=== PATIENT | female | born 1970 | race Caucasian/White ===

== ENCOUNTER 2017-05-26 10:53 | Emergency (ER) | payer OTHER ==
[~2017-05-26] VITALS: Ht 160 cm; Wt 56.0 kg
[~2017-05-26 10:53] MED LIST: CEPH-460 PO; PROZ20CA11 PO
[2017-05-26 10:58] VITALS: BP 117/83; PULSE 107; RESP 16; TEMP 97.9; O2SAT 94
[2017-05-26] MEDS ORDERED: ADDE20 PO (11:11)
[2017-05-26] MEDS ORDERED: FLUO60TA PO (11:11)
[2017-05-26] MEDS ORDERED: TRAM50TA PO (11:40)
[2017-05-26] MEDS ORDERED: CLIN1CAP6 PO (11:40)
[2017-05-26] MEDS ORDERED: CLINDAMYCIN 150 MG CAP PO ONE (11:45)
--- NOTE | 2017-05-26 11:46 | PD ---
HPI Chief Complaint: Skin Problem Time Seen by Provider: 11:20 Travel History International Travel<30 days: No Contact w/Intl Traveler<30days: No Traveled to known affect area: No History of Present Illness HPI 47-year-old female presents to the emergency room for evaluation of infected wound to his face that started 1 week ago today. Patient states she got a Botox injection 8 days ago and the following day she developed blisters are on the area. States she accidentally popped one of the blisters and it rapidly increased in size. She called her surgeon who prescribed gentamicin ointment and told her to wash her face daily with chlorhexidine. Patient states she has been doing this without improvement in symptoms. There been times where she has touched the wound on her forehead and it drains thick, yellow discharge and/ or blood. She has been keeping it covered but states the redness has spread around the wound. She developed swelling to the eyes yesterday. Patient reports extreme headache that is worse when she leans forward. Denies fever, chills, nausea, and vomiting. PFSH Past Medical History Autoimmune Disease: No Anxiety: Yes Depression: Yes Diabetes: No Diminished Hearing: No Psychiatric: Yes (MOOD SWINGS) Thyroid Disease: No Social History Alcohol Use: Yes (WINE ONCE PER MONTH) Tobacco Use: Yes (ONLY IF DRINKING, WILL HAVE ONE CIGARETTE) Substance Use: No Allergies-Medications (Allergen,Severity, Reaction): Coded Allergies: Hydrocodone (Verified Allergy, Intermediate, Hives, 05/26/17) denies this allergy Reported Meds & Prescriptions Reported Meds & Active Scripts Active Tramadol (Tramadol HCl) 50 Mg Tab 50 Mg PO Q8H PRN Clindamycin (Clindamycin HCl) 300 Mg Cap 300 Mg PO Q6H 10 Days Reported Adderall (Amphetamine-Dextroamphetamine) 20 Mg Tab 20 Mg PO DAILY Avoid late evening doses. Space doses at least 4 to 6 hours if more than once/day dosing. Fluoxetine (Fluoxetine HCl) 60 Mg Tab 60 Mg PO DAILY Review of Systems Except as stated in HPI: all other systems reviewed are Neg Physical Exam Narrative GENERAL: Well-nourished, well-developed female in no acute distress. Afebrile. Ambulatory. SKIN: Focused skin assessment warm/dry. There is a 4 cm scabbed wound on the forehead with 2 cm of surrounding erythema. It is draining purulent discharge. No lymphangitis. There is mild edema to bilateral eyes. HEAD: Normocephalic. EYES: No scleral icterus. No injection or drainage. NECK: Supple, trachea midline. No JVD or lymphadenopathy. CARDIOVASCULAR: Regular rate and rhythm without murmurs, gallops, or rubs. RESPIRATORY: Breath sounds equal bilaterally. No accessory muscle use. PSYCHIATRIC: No delusional thought processes. No hallucinations. Data Data Last Documented VS Vital Signs Date Time Temp Pulse Resp B/P Pulse Ox O2 Delivery O2 Flow Rate FiO2 05/26/17 10:58 97.9 107 16 117/83 94 Orders Wound Culture And Gram Stain (05/26/17 11:38) Clindamycin (Cleocin) (05/26/17 11:45) MDM Medical Decision Making Medical Screen Exam Complete: Yes Emergency Medical Condition: Yes Medical Record Reviewed: Yes Differential Diagnosis Cellulitis, infected wound, folliculitis, preseptal cellulitis Narrative Course 47-year-old female presents to the emergency room for evaluation of wound infection. Patient had Botox injection 8 days ago and developed blisters the following day. States they began draining purulent discharge with increasing redness and pain throughout the week. She has been applying topical gentamicin ointment as prescribed by her physician without any relief in symptoms. Physical exam reveals a 4 cm scabbed wound with spontaneous purulent drainage in the center of the forehead. There is surrounding erythema approximately 2 cm off the wound and bilateral lower eyelid edema. Vital signs stable. Wound culture was taken and patient was given loading dose of 600 mg clindamycin. Discharged with prescription for clindamycin and tramadol and told to follow-up with the primary care physician or return for worsening symptoms. Patient was informed she'll not likely see results for the next 2 days. She understands and agrees to plan. Diagnosis Primary Impression: Preseptal cellulitis Referrals: Primary Care Physician Patient Instructions: General Instructions, Periorbital Cellulitis in Adults ( ED) Additional Instructions: Rest and drink plenty of fluids. Take clindamycin as directed, until gone. Take tramadol as directed, as needed for pain. Do not drink alcohol or drive while taking this medication. Follow up with a primary care physician. Return to emergency room for worsening symptoms, as discussed. Med/Other Pt SpecificInfo: Prescription(s) given Scripts Tramadol 50 Mg Tab50 Mg PO Q8H PRN (PAIN) #8 TAB Ref 0 Prov:Mague Weinstein MD 05/26/17 Clindamycin 300 Mg [id number] Mg PO Q6H 10 Days Ref 0 Prov:Mague Weinstein MD 05/26/17 Disposition: 01 DISCHARGE HOME Condition: Stable Susan Hayes May 26, 2017 11:45
== END 2017-05-26 11:59 | disposition home or self-care (01) ==
LOC: PHEFT 10:53
DX: L03.213 Periorbital cellulitis (principal)
CPT/HCPCS: 87070; 87205; 99284

== ENCOUNTER 2017-06-05 13:33 | Emergency (ER) | payer OTHER ==
[~2017-06-05] VITALS: Ht 160 cm; Wt 55.0 kg
[~2017-06-05 13:33] MED LIST changes: +ADDE20 PO; -CEPH-460 PO; +CLIN1CAP6 PO; +FLUO60TA PO; -PROZ20CA11 PO; +TRAM50TA PO
[2017-06-05 13:48] VITALS: BP 120/74; PULSE 92; RESP 16; TEMP 98.4; O2SAT 97
--- NOTE | 2017-06-05 14:44 | PD ---
HPI Chief Complaint: Skin Problem Time Seen by Provider: 14:30 Travel History International Travel<30 days: No Contact w/Intl Traveler<30days: No Traveled to known affect area: No History of Present Illness HPI 47-year-old female presents for recheck. The patient reports that 2 weeks ago she received Botox injection in her forehead. A few days later she developed some redness and some blister type lesions, yellow drainage from the area where the Botox was administered. She was seen here on May 26 and felt to have a forehead cellulitis. A wound culture was performed and she was placed on clindamycin. She returns today for recheck. She reports significant improvement in her symptoms. The redness is significantly improved. She continues to have some occasional drainage as well as some redness/coalescing vesicles centrally. 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 She has no other complaints at this time. She has not yet followed up with the physician who performed the injections although she is planning on doing so soon. [facility] Past Medical History Autoimmune Disease: No Anxiety: Yes Depression: Yes Diabetes: No Diminished Hearing: No Psychiatric: Yes (MOOD SWINGS) Immunizations Current: No Thyroid Disease: No Tetanus Vaccination: < 5 Years Influenza Vaccination: No ?: Not Past Surgical History Surgical History: No Previous Surgery Social History Alcohol Use: Yes (WINE ONCE PER MONTH) Tobacco Use: Yes (ONLY IF DRINKING, WILL HAVE ONE CIGARETTE) Substance Use: No Allergies-Medications (Allergen,Severity, Reaction): Coded Allergies: Hydrocodone (Verified Allergy, Intermediate, Hives, 06/05/17) denies this allergy Reported Meds & Prescriptions Reported Meds & Active Scripts Active Clindamycin (Clindamycin HCl) 300 Mg Cap 300 Mg PO Q6H 10 Days Reported Adderall (Amphetamine-Dextroamphetamine) 20 Mg Tab 20 Mg PO DAILY Avoid late evening doses. Space doses at least 4 to 6 hours if more than once/day dosing. Fluoxetine (Fluoxetine HCl) 60 Mg Tab 60 Mg PO DAILY Review of Systems Except as stated in HPI: all other systems reviewed are Neg Physical Exam Narrative GENERAL: Well-developed well-nourished female in no acute distress SKIN: Warm and dry. There is approximately 2-3 cm area of redness on the forehead centrally. There is centrally some vesicle coelescing lesions. This is in the center of the forehead and not unilateral. There is no induration or fluctuance. HEAD: Atraumatic. Normocephalic. EYES: Pupils equal and round. No scleral icterus. No injection or drainage. ENT: No nasal bleeding or discharge. Mucous membranes pink and moist. NECK: Trachea midline. No JVD. Data Data Last Documented VS Vital Signs Date Time Temp Pulse Resp B/P Pulse Ox O2 Delivery O2 Flow Rate FiO2 06/05/17 13:48 98.4 92 16 120/74 97 MDM Medical Decision Making Medical Screen Exam Complete: Yes Emergency Medical Condition: Yes Medical Record Reviewed: Yes Differential Diagnosis Adverse reactions of Botox, superimposed cellulitic infection, herpes simplex viral infection, herpes zoster Narrative Course Her history and examination are most consistent with adverse reactions to Botox injection. Her symptoms have improved with clindamycin. The wound culture was negative and although she has some redness of the forehead it is not particularly cellulitic. She does have some central vesicle formation and therefore a or B simplex viral culture will be performed. I don't suspect shingles as it is not unilateral. The patient is encouraged to follow-up with the physician who performed the Botox injection. Diagnosis Primary Impression: S/P Botox injection Additional Impression: Encounter for wound re-check Additional Instructions: Follow-up with your physician. Continue taking clindamycin. Return for any emergent medical conditions. Med/Other Pt SpecificInfo: No Change to Meds Disposition: 01 DISCHARGE HOME Condition: Stable Joey Cruz Jun 05, 2017 14:44
[2017-06-05] MEDS ORDERED: TRAM50TA PO (14:55)
== END 2017-06-05 15:03 | disposition home or self-care (01) ==
LOC: PHED 13:33
DX: L03.211 Cellulitis of face (principal); Z98.890 Other specified postprocedural states
CPT/HCPCS: 87255; 99283

== ENCOUNTER 2017-08-02 06:09 | Emergency (ER) | payer OTHER ==
[~2017-08-02] VITALS: Ht 160 cm; Wt 54.9 kg
[2017-08-02 06:18] VITALS: BP 129/77; PULSE 98; RESP 16; TEMP 98.1; O2SAT 99
--- NOTE | 2017-08-02 06:57 | PD ---
HPI Chief Complaint: Fall Time Seen by Provider: 06:21 Travel History International Travel<30 days: No Contact w/Intl Traveler<30days: No Traveled to known affect area: No History of Present Illness HPI The patient is a 47-year-old female that states she fell at 10:30 yesterday when she stepped into a hole at her apartment. She complains of right knee pain , neck pain, head pain and left lumbosacral pain. She states the pain is "severe". She also has a tiny laceration where her belly button ornament got pulled out and she wants this sutured. Her tetanus shot was one year ago. She does have a documented remote history of cocaine and alcohol abuse. PFSH Past Medical History Autoimmune Disease: No Anxiety: Yes Depression: Yes Diabetes: No Diminished Hearing: No Psychiatric: Yes (MOOD SWINGS) Immunizations Current: No Thyroid Disease: No Tetanus Vaccination: < 5 Years Influenza Vaccination: No ?: Not LMP: 07/02/17 Social History Alcohol Use: Yes (WINE ONCE PER MONTH) Tobacco Use: Yes (ONLY IF DRINKING, WILL HAVE ONE CIGARETTE) Substance Use: No Allergies-Medications (Allergen,Severity, Reaction): Coded Allergies: hydrocodone (Unverified Allergy, Intermediate, Hives, 08/02/17) denies this allergy Reported Meds & Prescriptions Reported Meds & Active Scripts Active Reported Fluoxetine (Fluoxetine HCl) 60 Mg Tab 60 Mg PO DAILY Review of Systems Except as stated in HPI: all other systems reviewed are Neg Physical Exam Narrative GENERAL: The patient is alert, oriented 3 in slight apparent distress. Her vital signs are normal. SKIN: Focused skin assessment warm/dry. There is a 4 mm laceration through scar tissue of the umbilicus which the patient wants sutured. HEAD: There is a tiny bruise without any bony deformity lateral to the left eyebrow. Normocephalic. EYES: Pupils equal and round. No scleral icterus. No injection or drainage. ENT: No nasal bleeding or discharge. Mucous membranes pink and moist. NECK: Trachea midline. No JVD. The C-spine shows no bruising but the patient states she has tenderness over the C-spine following the fall. She does want a CT in this area. CARDIOVASCULAR: Regular rate and rhythm. No murmur appreciated. RESPIRATORY: No accessory muscle use. Clear to auscultation. Breath sounds equal bilaterally. GASTROINTESTINAL: Abdomen soft, non-tender, nondistended. Hepatic and splenic margins not palpable. MUSCULOSKELETAL: No obvious deformities. No clubbing. No cyanosis. No edema. The right knee shows collaterals, drawer, Anthony all intact with no apparent bruising and no deformity but the patient states she has severe pain there. There is no bruising or deformity of the lumbosacral spine but the patient states he has "severe" tenderness to the left of the lumbosacral spine around S1 /S2. Straight leg raising is normal, deep tendon reflexes are +2 bilaterally both patella Achilles and pinprick is normal. NEUROLOGICAL: Awake and alert. No obvious cranial nerve deficits. Motor grossly within normal limits. Normal speech. PSYCHIATRIC: Appropriate mood and affect; insight and judgment normal. Data Data Last Documented VS Vital Signs Date Time Temp Pulse Resp B/P (MAP) Pulse Ox O2 Delivery O2 Flow Rate FiO2 08/02/17 06:34 99 Room Air 08/02/17 06:18 98.1 98 16 129/77 (94) Orders Orders Ct Brain W/O Iv Contrast(Rout) (08/02/17 06:46) Ct Cerv Spine W/O Contrast (08/02/17 06:46) Ct Lumb Spine W/O Contrast (08/02/17 06:46) Knee, Complete (4vws) (08/02/17 06:46) [facility] Medical Decision Making Medical Screen Exam Complete: Yes Emergency Medical Condition: Yes Medical Record Reviewed: Yes Differential Diagnosis Multiple contusions, fracture skull, intracranial bleed, C-spine fracture, cervical strain, lumbar strain, lumbar fracture, knee fracture, knee contusion Narrative Course It is now 0700 and the patient is transferred to Dr. Miranda. Clinically, the patient has very few findings and requested x-rays/CTs with very low probability of positive findings. Juan Carlos Lopez MD Aug 02, 2017 06:57
--- NOTE | 2017-08-02 07:28 | RADRPT ---
EXAM DATE/TIME: 08/02/2017 07:03 [facility] COMPARISON: No previous studies available for comparison. INDICATIONS : Right knee pain post fall yesterday. MEDICAL HISTORY : None. SURGICAL HISTORY : None. ENCOUNTER: Initial ACUITY: 2 days PAIN SCORE: 8/10 LOCATION: Right knee FINDINGS: Four view examination of the right knee demonstrates no evidence of fracture or dislocation. Bony mi neralization is normal. The articular surfaces are intact. The suprapatellar soft tissues have a no rmal configuration. CONCLUSION: Unremarkable examination of the right knee. Julio C Leal MD on August 02, 2017 at 7:26 Board Certified Radiologist. This report was verified electronically.
--- NOTE | 2017-08-02 07:28 | RADRPT ---
EXAM DATE/TIME: 08/02/2017 07:12 [facility] COMPARISON: CT BRAIN W/O CONTRAST, August 16, 2016, 23:32. INDICATIONS : Trauma, fall. Cephalgia. RADIATION DOSE: 58.44 CTDIvol (mGy) MEDICAL HISTORY : None SURGICAL HISTORY : None. ENCOUNTER: Initial ACUITY: 1 day PAIN SCALE: 7/10 LOCATION: cranial TECHNIQUE: Multiple contiguous axial images were obtained of the head. Using automated exposure control and adj ustment of the mA and/or kV according to patient size, radiation dose was kept as low as reasonably a chievable to obtain optimal diagnostic quality images. DICOM format image data is available electro nically for review and comparison. FINDINGS: CEREBRUM: The ventricles are normal for age. No evidence of midline shift, mass lesion, hemorrhage or acute in farction. No extra-axial fluid collections are seen. POSTERIOR FOSSA: The cerebellum and brainstem are intact. The 4th ventricle is midline. The cerebellopontine angle i s unremarkable. EXTRACRANIAL: The visualized portion of the orbits is intact. SKULL: The calvaria is intact. No evidence of skull fracture. CONCLUSION: No acute intracranial injury Julio C Leal MD on August 02, 2017 at 7:23 Board Certified Radiologist. This report was verified electronically.
--- NOTE | 2017-08-02 07:43 | RADRPT ---
EXAM DATE/TIME: 08/02/2017 07:12 [facility] COMPARISON: CT CERVICAL SPINE W/O CONTRAST, August 16, 2016, 23:32. INDICATIONS : Trauma, fall. RADIATION DOSE: 25.01 CTDIvol (mGy) MEDICAL HISTORY : None SURGICAL HISTORY : None. ENCOUNTER: Initial ACUITY: 1 day PAIN SCALE: 7/10 LOCATION: neck TECHNIQUE: Volumetric scanning of the cervical spine was performed. Multiplanar reconstructions in the sagittal, coronal and oblique axial planes were performed. Using automated exposure control and adjustment o f the mA and/or kV according to patient size, radiation dose was kept as low as reasonably achievable to obtain optimal diagnostic quality images. DICOM format image data is available electronically f or review and comparison. FINDINGS: Alignment is normal. No prevertebral soft tissue swelling or compression deformity. Mild disc space n arrowing and multilevel osteophytosis again seen greatest at C4-5 and C6-7. C1-C2 relationship is nor mal, and the odontoid process is intact. Mild multilevel facet hypertrophic changes. Cervicothoracic junction is approximated. Uncovertebral hypertrophy at C4-5 or C6-7 noted. Scattered subchondral cyst ic changes again seen. There are no signs of fracture or listhesis. CONCLUSION: 1. Degenerative changes are noted without evidence for acute fracture or listhesis. Fernando Orta MD on August 02, 2017 at 7:40 Board Certified Radiologist. This report was verified electronically.
--- NOTE | 2017-08-02 07:59 | RADRPT ---
EXAM DATE/TIME: 08/02/2017 07:16 [facility] COMPARISON: CT LUMBAR SPINE W/O CONTRAST, August 16, 2016, 23:36. INDICATIONS : Trauma, fall. Left low back pain. RADIATION DOSE: 13.24 CTDIvol (mGy) MEDICAL HISTORY : None SURGICAL HISTORY : None. ENCOUNTER: Initial ACUITY: 1 day PAIN SCALE: 7/10 LOCATION: Left lumbar. TECHNIQUE: Volumetric scanning of the lumbar spine was performed. Multiplanar reconstructions in the sagittal, coronal and oblique axial planes were performed. Using automated exposure control and adjustment of the mA and/or kV according to patient size, radiation dose was kept as low as reasonably achievable t o obtain optimal diagnostic quality images. DICOM format image data is available electronically for review and comparison. FINDINGS: VERTEBRAE: Normal vertebral body height. Stable small node superior endplate of L2 with mild multilevel osteophy te formation and facet hypertrophy. ALIGNMENT: No evidence of subluxation. T12-L1: The thecal sac has a normal diameter. No evidence of disc bulge or protrusion. The neural foramina are patent bilaterally. L1-L2: The thecal sac has a normal diameter. No evidence of disc bulge or protrusion. The neural foramina are patent bilaterally. L2-L3: The thecal sac has a normal diameter. No evidence of disc bulge or protrusion. The neural foramina are patent bilaterally. L3-L4: The thecal sac has a normal diameter. No evidence of disc bulge or protrusion. The neural foramina are patent bilaterally. L4-L5: Mild diffuse disc bulge and facet and ligamentum flavum hypertrophy with mild canal narrowing. L5-S1: The thecal sac has a normal diameter. No evidence of disc bulge or protrusion. The neural foramina are patent bilaterally. CONCLUSION: 1. Stable mild degenerative changes without evidence for acute fracture or listhesis. Fernando Orta MD on August 02, 2017 at 7:56 Board Certified Radiologist. This report was verified electronically.
[2017-08-02] MEDS ORDERED: ACETAMINOPHEN 500 MG CPLT PO ONE (08:00)
[2017-08-02] MEDS ORDERED: TRAM50TA PO (08:16)
--- NOTE | 2017-08-02 08:20 | PD ---
Data Data Last Documented VS Vital Signs Date Time Temp Pulse Resp B/P (MAP) Pulse Ox O2 Delivery O2 Flow Rate FiO2 08/02/17 06:34 99 Room Air 08/02/17 06:18 98.1 98 16 129/77 (94) Orders Orders Ct Brain W/O Iv Contrast(Rout) (08/02/17 06:46) Ct Cerv Spine W/O Contrast (08/02/17 06:46) Ct Lumb Spine W/O Contrast (08/02/17 06:46) Knee, Complete (4vws) (08/02/17 06:46) Acetaminophen (Tylenol) (08/02/17 08:00) MDM Supervised Visit with NGUYỄN: No Narrative Course Case is checked out to me by Dr. Lopez at 7 AM. Patient had a fall and I reviewed all the imaging studies Her knee x-rays are normal Brain CT negative Cervical spine and lumbar spine show some degenerative change without traumatic injury Patient has a 1 cm laceration just above the umbilicus where a piece of jewelry was pulled out. She insists upon one stitch being placed. LACERATION LOCATION: Umbilicus LENGTH: 1 cm NUMBER OF STITCHES/JEAN: 1 stitch REPAIR: The area of the laceration was prepped. No anesthesia needed for one suture. The wound was explored without evidence of foreign body, tendon injury or neurovascular injury. The wound was closed using 5-0 Ethilon in a single layer repair. A sterile dressing was applied. The patient was advised to keep the dressing clean and dry. Patient tolerated the procedure well. A few tramadol written for pain relief The patient was advised to follow up with their physician and return if they worsen. Diagnosis Primary Impression: Fall Qualified Codes: W19.XXXA - Unspecified fall, initial encounter Additional Impressions: Head injury due to trauma Qualified Codes: S09.90XA - Unspecified injury of head, initial encounter Low back strain Qualified Codes: S39.012A - Strain of muscle, fascia and tendon of lower back , initial encounter Laceration of abdominal wall Qualified Codes: S31.119A - Laceration without foreign body of abdominal wall , unspecified quadrant without penetration into peritoneal cavity, initial encounter Additional Instruction: The patient was advised to follow up with their physician and return if they worsen. The patient was warned about potential sedation for the medications they will receive on prescription. Med/Other Pt SpecificInfo: Prescription(s) given Scripts Tramadol (Tramadol) 50 Mg Tab 50 MG PO Q6H Y for PAIN, #10 TAB 0 Refills Prov: Breezy Miranda MD 08/02/17 Disposition: 01 DISCHARGE HOME Condition: Stable Breezy Miranda MD Aug 02, 2017 08:19
== END 2017-08-02 08:34 | disposition home or self-care (01) ==
LOC: PHED 06:09
DX: S09.90XA Unspecified injury of head, initial encounter (principal); S39.012A Strain of muscle, fascia and tendon of lower back, initial encounter; S31.115A Laceration without foreign body of abdominal wall, periumbilic region without penetration into peritoneal cavity, initial encounter; W17.2XXA Fall into hole, initial encounter; Y92.039 Unspecified place in apartment as the place of occurrence of the external cause
CPT/HCPCS: 12001; 70450; 72125; 72131; 73564

== ENCOUNTER 2018-02-08 07:26 | Emergency (ER) | payer OTHER ==
[~2018-02-08] VITALS: Ht 160 cm; Wt 56.8 kg
[~2018-02-08 07:26] MED LIST changes: -ADDE20 PO; -CLIN1CAP6 PO
[2018-02-08 07:45] VITALS: BP 132/82; PULSE 98; RESP 18; TEMP 97.1; O2SAT 100
--- NOTE | 2018-02-08 07:48 | PD ---
HPI Chief Complaint: Skin Problem Time Seen by Provider: 07:42 Travel History International Travel<30 days: No Contact w/Intl Traveler<30days: No Traveled to known affect area: No History of Present Illness HPI This 48-year-old female is complaining of a very itchy rash over face and upper chest. He says that a couple of days ago she had severe itching in the back of her neck. She was scratching a lot. She looked in her hair and saw bugs. She used a course of red and then is also wrapped her head and all of oil and then an coconut oil. She did notice a bug in her eyebrow. She developed a rash on her face this morning which is also quite itchy. She feels like she has had a fever the last couple of days. She does not have a cough. There has not been any dysuria. She is not on any medication. She has used Retin-A in the past for asthma but has not been using it recently she has noted some sores on her tongue PFSH Past Medical History Autoimmune Disease: No Anxiety: Yes Depression: Yes Diabetes: No Diminished Hearing: No Psychiatric: Yes (MOOD SWINGS) Immunizations Current: No Thyroid Disease: No Social History Alcohol Use: Yes (WINE ONCE PER MONTH) Tobacco Use: Yes (ONLY IF DRINKING, WILL HAVE ONE CIGARETTE) Substance Use: No Allergies-Medications (Allergen,Severity, Reaction): Coded Allergies: hydrocodone (Verified Allergy, Unknown, Hives, 02/08/18) Patient denies Reported Meds & Prescriptions Reported Meds & Active Scripts Active No Active Prescriptions or Reported Medications Review of Systems General / Constitutional: Positive: Fever, No: Chills Eyes: No: Diploplia, Blurred Vision HENT: No: Headaches Cardiovascular: No: Chest Pain or Discomfort, Palpitations Respiratory: No: Cough, Shortness of Breath Gastrointestinal: No: Nausea, Vomiting Genitourinary: No: Urgency Musculoskeletal: No: Myalgias Skin: Positive Rash, Positive Itching Endocrine: No: Heat Intolerance Hematologic/Lymphatic: No: Easy Bruising Physical Exam Narrative GENERAL: Well-developed female SKIN: Focused skin assessment warm/dry. There are some erythematous plaques on the face with some exudate and some mild swelling. There are similar lesions on the chest. I have examined the scalp and eyebrows I do not see any bugs at this time HEAD: Atraumatic. Normocephalic. EYES: Pupils equal and round. No scleral icterus. No injection or drainage. ENT: No nasal bleeding or discharge. Mucous membranes pink and moist. There are aphthous ulcers on both sides of the tongue. There is also some on the undersurface of the tongue NECK: Trachea midline. No JVD. CARDIOVASCULAR: Regular rate and rhythm. No murmur appreciated. RESPIRATORY: No accessory muscle use. Clear to auscultation. Breath sounds equal bilaterally. GASTROINTESTINAL: Abdomen soft, non-tender, nondistended. Hepatic and splenic margins not palpable. MUSCULOSKELETAL: No obvious deformities. No clubbing. No cyanosis. No edema. NEUROLOGICAL: Awake and alert. No obvious cranial nerve deficits. Motor grossly within normal limits. Normal speech. PSYCHIATRIC: Appropriate mood and affect; insight and judgment normal. Data Data Last Documented VS Vital Signs Date Time Temp Pulse Resp B/P (MAP) Pulse Ox O2 Delivery O2 Flow Rate FiO2 02/08/18 07:45 97.1 98 18 132/82 (99) 100 Orders Orders Complete Blood Count With Diff (02/08/18 07:42) Basic Metabolic Panel (Bmp) (02/08/18 07:42) Urinalysis - C+S If Indicated (02/08/18 07:42) Prednisone (Deltasone) (02/08/18 09:30) Labs Laboratory Tests Test 02/08/18 08:00 02/08/18 08:40 White Blood Count 4.9 TH/MM3 Red Blood Count 3.84 MIL/MM3 Hemoglobin 11.6 GM/DL Hematocrit 34.0 % Mean Corpuscular Volume 88.7 FL Mean Corpuscular Hemoglobin 30.3 PG Mean Corpuscular Hemoglobin Concent 34.2 % Red Cell Distribution Width 14.5 % Platelet Count 284 TH/MM3 Mean Platelet Volume 8.0 FL Neutrophils (%) (Auto) 54.7 % Lymphocytes (%) (Auto) 27.8 % Monocytes (%) (Auto) 14.0 % Eosinophils (%) (Auto) 2.5 % Basophils (%) (Auto) 1.0 % Neutrophils # (Auto) 2.8 TH/MM3 Lymphocytes # (Auto) 1.3 TH/MM3 Monocytes # (Auto) 0.7 TH/MM3 Eosinophils # (Auto) 0.1 TH/MM3 Basophils # (Auto) 0.0 TH/MM3 CBC Comment DIFF FINAL Differential Comment Blood Urea Nitrogen 5 MG/DL Creatinine 0.93 MG/DL Random Glucose 104 MG/DL Calcium Level 8.7 MG/DL Sodium Level 134 MEQ/L Potassium Level 4.3 MEQ/L Chloride Level 99 MEQ/L Carbon Dioxide Level 29.1 MEQ/L Anion Gap 6 MEQ/L Estimat Glomerular Filtration Rate 64 ML/MIN Urine Color YELLOW Urine Turbidity CLEAR Urine pH 7.0 Urine Specific [place] 1.010 Urine Protein NEG mg/dL Urine Glucose (UA) NEG mg/dL Urine Ketones TRACE mg/dL Urine Occult Blood SMALL Urine Nitrite NEG Urine Bilirubin NEG Urine Urobilinogen 0.2 MG/DL Urine Leukocyte Esterase NEG Urine RBC 0-3 /hpf Urine WBC 0-2 /hpf Urine Squamous Epithelial Cells 0-5 /hpf Microscopic Urinalysis Comment CULT NOT INDICATED MDM Medical Decision Making Medical Screen Exam Complete: Yes Emergency Medical Condition: Yes Medical Record Reviewed: Yes Differential Diagnosis Differential includes contact dermatitis, pediculosis, apthous stomatitis Narrative Course Lab work is unremarkable. I believe this is primarily a contact dermatitis but there was initially pediculosis is not clear to me at this time. She does describe seeing bugs in her hair. Diagnosis Primary Impression: Contact dermatitis Scripts Hydroxyzine Pamoate (Vistaril) 50 Mg Cap 50 MG PO QID Y for ITCHING, #20 CAP 0 Refills Prov: Guillermo Farmer MD 02/08/18 Fluoxetine (Fluoxetine) 20 Mg Capsule 20 MG PO TID for 30 Days, #30 CAP 0 Refills Prov: Guillermo Farmer MD 02/08/18 Prednisone (Prednisone) 20 Mg Tab 60 MG PO DAILY for 5 Days, #15 TAB 0 Refills Take 40 mg (2 tablets) daily for 5 days Prov: Guillermo Farmer MD 02/08/18 Disposition: 01 DISCHARGE HOME Condition: Stable Guillermo Farmer MD Feb 08, 2018 07:48
[2018-02-08 08:15] LABS: AUTOMATED NEUTROPHIL # 2.8 TH/MM3 (1.8-7.7); EOSINOPHIL # 0.1 TH/MM3 (0-0.4); EOSINOPHIL % 2.5 % (0.0-4.0); HEMOGLOBIN 11.6 GM/DL (11.6-15.3); LYMPH % 27.8 % (9.0-44.0); LYMPHOCYTE # 1.3 TH/MM3 (1.0-4.8); MEAN CELL VOLUME 88.7 FL (80.0-100.0); MEAN CORPUSCULAR HEMOGLOBIN 30.3 PG (27.0-34.0); MEAN CORPUSCULAR HGB CONC 34.2 % (32.0-36.0); MONOCYTE # 0.7 TH/MM3 (0-0.9); NEUT % 54.7 % (16.0-70.0); PLATELET COUNT 284 TH/MM3 (150-450); RED BLOOD COUNT 3.84 MIL/MM3 (4.00-5.30); RED CELL DISTRIBUTION WIDTH 14.5 % (11.6-17.2); WHITE BLOOD COUNT 4.9 TH/MM3 (4.0-11.0)
[2018-02-08 08:33] LABS: CALCIUM 8.7 MG/DL (8.5-10.1)
[2018-02-08 08:34] LABS: BICARBONATE 29.1 MEQ/L (21.0-32.0)
[2018-02-08 08:37] LABS: CREATININE 0.93 MG/DL (0.50-1.00)
[2018-02-08 08:47] LABS: BILIRUBIN, URINE NEG (NEG); BLOOD, URINE SMALL (NEG); GLUCOSE,URINE NEG (NEG); KETONE, URINE TRACE mg/dL (NEG); NITRITE,URINE NEG (NEG); URINE COLOR YELLOW (YELLW/STRAW); URINE LEUKOCYTE ESTERASE NEG (NEG)
[2018-02-08 08:55] LABS: RBC, URINE 0-3 /hpf (0-3); WBC, URINE 0-2 /hpf (0-5)
[2018-02-08 08:56] LABS: SQUAMOUS EPITHELIAL CELL URINE 0-5 /hpf (0-5)
[2018-02-08] MEDS ORDERED: FLUO20CA12 PO (09:23)
[2018-02-08] MEDS ORDERED: VIST50CA PO (09:23)
[2018-02-08] MEDS ORDERED: PRED20 PO (09:23)
[2018-02-08] MEDS ORDERED: predniSONE 20 MG TAB PO ONE (09:30)
[2018-02-08 09:35] VITALS: BP 107/68
== END 2018-02-08 09:35 | disposition home or self-care (01) ==
LOC: PHED 07:26
DX: L25.9 Unspecified contact dermatitis, unspecified cause (principal); R05 Cough; F41.9 Anxiety disorder, unspecified; F32.9 Major depressive disorder, single episode, unspecified; F17.210 Nicotine dependence, cigarettes, uncomplicated; Z88.5 Allergy status to narcotic agent
CPT/HCPCS: 80048; 81001; 85025; 99283; J7512

== ENCOUNTER 2018-03-28 16:14 | Emergency (ER) | payer OTHER ==
[~2018-03-28] VITALS: Ht 160 cm; Wt 59.0 kg
[~2018-03-28 16:14] MED LIST changes: +FLUO20CA12 PO; -FLUO60TA PO; +PRED20 PO; -TRAM50TA PO; +VIST50CA PO
[2018-03-28 16:16] VITALS: BP 146/74; PULSE 96; RESP 18; TEMP 98.6; O2SAT 98
[2018-03-28] MEDS ORDERED: CLINDAMYCIN 150 MG CAP PO ONE (16:45)
[2018-03-28] MEDS ORDERED: CLIN150C14 PO (16:45)
--- NOTE | 2018-03-28 16:45 | PD ---
HPI Chief Complaint: Skin Problem Time Seen by Provider: 16:44 Travel History International Travel<30 days: No Contact w/Intl Traveler<30days: No Traveled to known affect area: No History of Present Illness HPI 48-year-old female arrives with a complaint of swelling and pain around the left elbow. It has been present for about 6 days. About 3 days ago patient reports that she began to pick at the arm. Minimal purulent discharge was expressed. No fever. Range of motion of the arm is preserved. 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 Patient denies IV drug abuse. PFSH Past Medical History Medical History: Denies Significant Hx Autoimmune Disease: No Anxiety: Yes Depression: Yes Diabetes: No Diminished Hearing: No Psychiatric: Yes (Mood swings ) Immunizations Current: No Thyroid Disease: No ?: Not Past Surgical History Surgical History: No Previous Surgery Social History Alcohol Use: No Tobacco Use: No Substance Use: No Allergies-Medications (Allergen,Severity, Reaction): Coded Allergies: No Known Allergies (Unverified , 03/28/18) Reported Meds & Prescriptions Reported Meds & Active Scripts Active Clindamycin (Clindamycin HCl) 150 Mg Cap 450 Mg PO Q8H 10 Days Review of Systems Except as stated in HPI: all other systems reviewed are Neg General / Constitutional: No: Fever Physical Exam Narrative GENERAL: 48-year-old female pleasant well-nourished well-developed Vital Signs Date Time Temp Pulse Resp B/P (MAP) Pulse Ox O2 Delivery O2 Flow Rate FiO2 03/28/18 16:16 98.6 96 18 146/74 (98) 98 SKIN: Warm and dry. HEAD: Atraumatic. Normocephalic. EYES: Pupils equal and round. No scleral icterus. No injection or drainage. ENT: No nasal bleeding or discharge. Mucous membranes pink and moist. NECK: Trachea midline. No JVD. CARDIOVASCULAR: Regular rate and rhythm. RESPIRATORY: No accessory muscle use. Clear to auscultation. Breath sounds equal bilaterally. GASTROINTESTINAL: Abdomen soft, non-tender, nondistended. Hepatic and splenic margins not palpable. MUSCULOSKELETAL: Cellulitis with an abscess is noted along the region of the left elbow somewhat lateral in location. Minimal drainage noted. ROM preserved. 2+ Radial artery pulse bialteraly. NEUROLOGICAL: Awake and alert. No obvious cranial nerve deficits. Motor grossly within normal limits. Five out of 5 muscle strength in the arms and legs. Normal speech. PSYCHIATRIC: Appropriate mood and affect; insight and judgment normal. Data Data Last Documented VS Vital Signs Date Time Temp Pulse Resp B/P (MAP) Pulse Ox O2 Delivery O2 Flow Rate FiO2 03/28/18 16:16 98.6 96 18 146/74 (98) 98 Orders Orders Clindamycin (Cleocin) (03/28/18 16:45) Ed Discharge Order (03/28/18 16:46) MDM Medical Decision Making Medical Screen Exam Complete: Yes Emergency Medical Condition: Yes Medical Record Reviewed: Yes Differential Diagnosis cellulitis, abscess, septic arthritis Narrative Course Although the wound involves the left elbow it does not appear to be related to IV drug abuse. There is cellulitis with draining purulent discharge. Clindamycin prescription written. The patient's pharmacist called and requested a different medication so the patient could afford it. Bactrim and Keflex ordered. Diagnosis Primary Impression: Cellulitis and abscess of upper arm and forearm Referrals: Primary Care Physician call for appointment Med/Other Pt SpecificInfo: Prescription(s) given Scripts Clindamycin (Clindamycin) 150 Mg Cap 450 MG PO Q8H for Infection for 10 Days, #90 CAP 0 Refills Prov: Simone Conner MD 03/28/18 Disposition: 01 DISCHARGE HOME Condition: Stable Simone Conner MD March 28, 2018 16:45
== END 2018-03-28 16:54 | disposition home or self-care (01) ==
LOC: PHED 16:14
DX: L03.119 Cellulitis of unspecified part of limb (principal); L02.414 Cutaneous abscess of left upper limb
CPT/HCPCS: 99283